=== PATIENT | female | born 1935 | race Caucasian/White ===

== ENCOUNTER 2017-05-13 12:19 | Inpatient (IN) | payer MEDICARE, OTHER ==
[~2017-05-13] VITALS: Ht 179.1 cm; Wt 63.6 kg
[2017-05-13] MEDS: 0.9 % SODIUM CHLORIDE 10 ML DISP.SYRIN. IV PRN ×2 (12:35→13:15)
[2017-05-13] MEDS ORDERED: IV NORMAL SALINE 1,000ML 1,000 ML IV SCH ×2 (12:39→14:27)
[2017-05-13] MEDS ORDERED: ACETAMINOPHEN 325 MG TABLET PO ONE (12:45)
--- NOTE | 2017-05-13 12:52 | PHYS DOC ---
Past History Past Medical History: Dementia Additional Past Medical Histor: resting tremor hard of hearing Smoking: Quit Greater Than 1 Year Alcohol Use: None Drug Use: None Adult General Chief Complaint Chief Complaint: FEVER HPI HPI Patient is a pleasant otherwise healthy 81-year-old female with a known history of dementia and a resting tremor who presents with a fever to 102.3 today at her doctor's office. Over the last several days this patient has been suffering from a nonproductive cough with increased nasal congestion and low-grade fevers to 101-103. Family is also noted decreased energy and increased sleepiness with some confusion. Patient is very hard of hearing normally lives with family. Patient denies any chest pain, abdominal pain she does not hurt anywhere she denies any sick contacts recent antibiotics or travel outside the country. She denies any change in medications as the only change medications that she does normally take his Xanax to help her sleep at night which makes actually too sleepy according to her. She denies any running, diarrhea, UTI symptoms or back pain. Besides having a fever and being tired she has no complaints. Review of Systems Review of Systems Constitutional: Positive for fevers and chills Eyes: Denies change in visual acuity, redness, or eye pain [] HENT: Positive for nasal congestion negative for sore throat Respiratory: Positive for cough nonproductive negative for shortness of breath Cardiovascular: No additional information not addressed in HPI [] GI: Denies abdominal pain, nausea, vomiting, bloody stools or diarrhea [] : Denies dysuria or hematuria [] Musculoskeletal: Denies back pain or joint pain [] Integument: Denies rash or skin lesions [] Neurologic: Denies headache, focal weakness or sensory changes positive for generalized weakness [] Endocrine: Denies polyuria or polydipsia [] All other systems were reviewed and found to be within normal limits, except as documented in this note. Allergies Allergies Allergies Coded Allergies Type Severity Reaction Last Updated Verified No Known Drug Allergies 05/13/17 No Physical Exam Physical Exam Constitutional: Patient is thin and cachectic but in no acute distress nontoxic in appearance HENT: Normocephalic, atraumatic, bilateral external ears normal, oropharynx dry with mild erythema but, no oral exudates or tonsillar hypertrophy nose clear rhinorrhea noted TMs bilaterally clear. [] Eyes: PERRLA, EOMI, conjunctiva normal, no discharge. [] Neck: Normal range of motion, no tenderness, supple, no stridor. [] Cardiovascular: Patient is a regular rhythm but a very significant 5/6 systolic ejection murmur with radiation to the neck in the abdominal wall. Lungs & Thorax: Bilateral breath sounds clear to auscultation [] Abdomen: Bowel sounds normal, soft, no tenderness, no masses, she has large pulsatile mass in the middle of abdomen nontender Skin: Warm, dry, no erythema, no rash. [] Extremities: No tenderness, no cyanosis, no clubbing, ROM intact, no edema. [] Neurologic: Alert and oriented X 3, normal motor function, normal sensory function, no focal deficits noted he moves all tremor these without weakness patient is very hard of hearing. [] Psychologic: Affect normal, judgement normal, mood normal. [] EKG EKG EKG read by me time on EKG of 1:03 PM 05/13/2017 demonstrates heart rate 94 there is a P wave there were QRS this is sinus rhythm there isn't occasional PVC noted FL interval is 124 which is normal, QRS width is 84 which is normal, QTC is 423 which is normal, patient has no evidence of ST segment or T-wave changes consistent with acute cord ischemia. There is questionable Q wave in V1 and V2 which may represent an old injury pattern.[] Radiology/Procedures Radiology/Procedures [] Course & Med Decision Making Course & Med Decision Making Pertinent Labs and Imaging studies reviewed. (See chart for details) []City Marshal note: Dr. Jason Luis City Marshal called at of the service service called at 2:20 PM Consult called back at service called back at 2:20 PM Discussed the case I presented and they agreed with admission. Time of acceptance 2:20 PM We discussed aneurysm found on ultrasound as well as elevated troponin. Patient patient's age and dementia he advised that he would be happy to admit this patient to the hospital to continue to follow blood cultures and administering antibiotics for empiric treatment for suspected systemic infection likely from a urinary source of the appropriate. She will be evaluated by a oyster cultivator because of her elevated troponin she has aortic stenosis and a large abdominal aneurysm that we did talk about it is 8.7 cm although she's had not having abdominal pain he will begin asked the family about how to approach this electively or with watchful waiting based on the fact that she is demented she may need to be on hospice. He will begin have a conversation with family at the bedside. Dragon Disclaimer Dragon Disclaimer This electronic medical record was generated, in whole or in part, using a voice recognition dictation system. Departure Departure: Impression: Primary Impression: Renal insufficiency Additional Impressions: Elevated troponin Abdominal aneurysm Fever Disposition: ADMITTED INPATIENT Admitting Physician: Jason Funes Condition: GUARDED Referrals: JASON FUNES MD (PCP) Problem Qualifiers CHRISTY BRIAN MD May 13, 2017 12:52
[2017-05-13 13:31] LABS: BASO % 1 % (0-3); EOS % 0 % (0-3); HEMATOCRIT 41.2 % (36.0-47.0); HEMOGLOBIN 13.8 g/dL (12.0-15.5); LYMPH # 0.6 x10^3/uL (1.0-4.8); LYMPH % 13 % (24-48); MEAN CORPUSCULAR HEMOGLOBIN 32 pg (25-35); MEAN CORPUSCULAR HGB CONC 34 g/dL (31-37); MEAN CORPUSCULAR VOLUME 97 fL (79-100); MONO # 0.4 x10^3/uL (0.0-1.1); MONO % 8 % (0-9); NEUT # 3.9 x10^3uL (1.8-7.7); NEUT % 79 % (31-73); PLATELET COUNT 90 x10^3/uL (140-400); RED BLOOD COUNT 4.27 x10^6/uL (3.50-5.40); RED CELL DISTRIBUTION WIDTH 13.7 % (11.5-14.5)
--- NOTE | 2017-05-13 13:55 | RAD ---
Ultrasound evaluation of the abdominal aorta 05/13/2017 Indication: Pulsatile abdominal mass Comparison study: None Discussion: Ultrasound evaluation of the abdominal aorta was performed including color Doppler imaging spectral analysis. There is a large aneurysm involving the abdominal aorta measuring up to 8.7 cm in AP diameter. The proximal abdominal aorta measures 2.5 cm in diameter. The distal abdominal aorta measures 5.6 cm in diameter. Aortic bifurcation is not visualized. Impression: Infrarenal large abdominal aortic aneurysm measuring up to 8.7 cm in diameter. Consider CTA for further characterization. Vascular surgical consultation recommended.
[2017-05-13 13:56] LABS: ALBUMIN 4.1 g/dL (3.4-5.0); CALCIUM 9.1 mg/dL (8.5-10.1); CREATININE 1.4 mg/dL (0.6-1.0); DIRECT BILIRUBIN 0.2 mg/dL (0.0-0.2); GFR 36.2; MAGNESIUM 1.6 mg/dL (1.8-2.4); POTASSIUM 4.5 mmol/L (3.5-5.1); TOTAL BILIRUBIN 0.7 mg/dL (0.2-1.0); TOTAL PROTEIN 8.8 g/dL (6.4-8.2)
--- NOTE | 2017-05-13 13:56 | RAD ---
Single view of the Chest 05/13/2017 2:39 PM Indication: cough fever Comparison: None Findings: There is no focal consolidation or infiltrate identified. There is no effusion or pneumothorax. Heart size appears to be within normal limits. Atherosclerotic calcification of the thoracic aorta noted. No osseous abnormality is identified. Impression: No evidence of acute cardiopulmonary process.
[2017-05-13] MEDS ORDERED: ONDANSETRON PF 4 MG/2 ML VIAL. IV PRN (14:30)
[2017-05-13] MEDS ORDERED: ACETAMINOPHEN 325 MG TABLET PO PRN (14:30)
[2017-05-13 14:32] LABS: BILIRUBIN,URINE SMALL (NEG); CLARITY,URINE HAZY; COLOR,URINE AMBER; GLUCOSE,URINE NEG (NEG); NITRITE,URINE NEG (NEG); UROBILINOGEN,URINE 1 mg/dL (0.2 mg/dL)
[2017-05-13 14:33] LABS: BACTERIA,URINE FEW /HPF (0-FEW); GRANULAR CASTS,URINE OCC /HPF; HYALINE CASTS, URINE FEW /HPF; SQUAMOUS EPITHELIAL CELL,UR FEW /LPF; WBC,URINE RARE /HPF (0-4)
--- NOTE | 2017-05-13 14:40 | EKG ---
[address] [address] Test Date: 2017-05-13 Test Time: 13:03:03 Pat Name: MEGHA LOMBARDO Department: Room: Gender: F Paint Mixer: RED : [id number] Requested By: CHRISTY BRIAN Order Number: [id number] Reading MD: Derik Souza MD Measurements Intervals [place] Rate: 94 P: 47 IA: 124 QRS: 31 QRSD: 84 T: 87 QT: 334 QTc: 423 Interpretive Statements SINUS RHYTHM PVC Electronically Signed On 05-21-2017 9:22:04 WEAVING LOOM OPERATOR by Derik Souza MD
[2017-05-13 14:42] LABS: INFLUENZA A PATIENT NEGATIVE (NEGATIVE); INFLUENZA B PATIENT NEGATIVE (NEGATIVE)
[2017-05-13] MEDS ORDERED: LORazepam 2 MG/ML VIAL IV ONE (15:30)
[2017-05-13] MEDS ORDERED: CIPROFLOXACIN 400MG PREMIX 200 ML IV ONE (15:30)
[2017-05-13 16:09] VITALS: BP 112/75
[2017-05-13 16:20] VITALS: BP 112/75
[2017-05-13] MEDS ORDERED: cefTRIAXone IV Push 1 GM VIAL. IVP SCH (16:30)
--- NOTE | 2017-05-13 17:50 | CONS ---
DATE OF CONSULTATION: 05/13/2017 REASON FOR CONSULTATION: Elevated troponin. HISTORY OF PRESENT ILLNESS: The patient is an 81-year-old woman who lives with her granddaughter who apparently has been having fevers and chills at home and presented with fevers of 102 and was admitted for further evaluation and treatment of this infectious process. On routine examination, she was noted to have a pulsatile abdominal mass and this prompted an ultrasound examination, which revealed an 8.7 cm abdominal aortic aneurysm. The proximal abdominal aorta apparently measures approximately 2.5 cm. She apparently at home has been in her usual state of health until the last few days when she has had fevers. Otherwise, she does not have any significant angina, orthopnea, PND or lower extremity edema. At baseline, she has been known to have some mild dementia and mild parkinsonian features, but no other significant pathology. The patient apparently has been evaluated by Dr. Funes about a year ago with respect to weight loss and did not have any significant laboratory abnormalities according to her primary managed care liaison, her granddaughter. PAST MEDICAL HISTORY: As noted above. SOCIAL HISTORY: The patient lives with her granddaughter and her son. FAMILY HISTORY: Noncontributory. REVIEW OF SYSTEMS: Negative for 10 out of 14 systems reviewed, unless otherwise mentioned above in HPI. ALLERGIES: No known drug allergies. CURRENT CARDIOVASCULAR MEDICATIONS: None. PHYSICAL EXAMINATION: VITAL SIGNS: Afebrile, heart rate 86, respiratory rate 20, blood pressure 112/75. GENERAL: She is mildly confused secondary to Ativan, given in the ER for anxiety. HEAD AND NECK: Unremarkable. HEART: Regular rate and rhythm with a 3/6 systolic murmur. Preserved S2. LUNGS: Are fairly clear to auscultation bilaterally anteriorly. ABDOMEN: Scaphoid with a large sub-epigastric mass that is pulsatile without any significant bruits. EXTREMITIES: She has diminished, but palpable pulses in her legs. She has some mottling of her lower extremities. She has cool lower extremities. NEUROLOGIC: No obvious lateralizing signs or focal deficits, but she is fairly confused. DIAGNOSTIC STUDIES: EKG demonstrates sinus rhythm with normal axis. There is rare PVC. No obvious acute ST-T wave changes. Abdominal aortic aneurysm as noted above. Chest x-ray unremarkable. LABORATORY DATA: Reviewed and notable for an elevated BNP of 6000. Minimally elevated troponin. Cr 1.4 IMPRESSION: 1. Mental status changes secondary to acute infectious process. Etiology unclear. Current workup ongoing. 2. Abdominal aortic aneurysm, 8.7 cm. 3. Suspect possible mild to moderate aortic stenosis. 4. Acute on chronic probable diastolic heart failure. 5. Failure to thrive. RECOMMENDATIONS: I had a long discussion with the patient's primary apprentice plant attendant, granddaughter, with regards to aggressive versus more conservative measures. At this present time, the family feels that the patient is quite functional and has a good mental capacity at baseline and therefore, they would like aggressive measures. In an effort to help pursue this, we will transfer to [facility] for further evaluation by Vascular Surgery and obtain an echocardiogram and a CT angiogram for treatment planning. She may be a candidate for endovascular approaches to her abdominal aortic aneurysm intervention and this would be preferred given her significant frailty. Thank you for this consultation. OJRDAN ARGUETA MD DR: KYUNG/frank JOB#: [id number] / [id number] REHAN
[2017-05-13] MEDS ORDERED: LORazepam 0.5 MG TABLET PO PRN (19:45)
[2017-05-13 19:54] VITALS: BP 102/64
[2017-05-13] MEDS ORDERED: LACTOBACILLUS RHAMNOSUS GG 1 CAPSULE. PO SCH (21:00)
[2017-05-14] MEDS ORDERED: CIPROFLOXACIN 400MG PREMIX 200 ML IV SCH (09:00)
--- NOTE | 2017-05-20 09:33 | HP ---
ADMIT DATE: 05/13/2017 HISTORY OF PRESENT ILLNESS: The patient is an 81-year-old female who lives with her daughter, apparently had a problem with an elevated temperature, came initially and through the office was transferred to the Emergency Room where she was found to have a temperature of 103. The patient in turn also was noted to have an 8.3 cm aneurysm. The patient's labs are basically unremarkable, probably viral bronchitis. The patient made good progress during the rest of her hospitalization. She was stable and she was transferred down to [facility] [place] per family's request. MEDICATIONS: The patient's medications ____ primidone 50 three times a day, Xanax 0.5 three times a day, and Aricept 10. PAST MEDICAL HISTORY: Left mastectomy, history of hypertension. ALLERGIES: No known allergies. PAST SURGICAL HISTORY: Left mastectomy. FAMILY HISTORY: Unremarkable. SOCIAL HISTORY: The patient denies alcohol or drug use. Does smoke and has about a [id number] history of smoking. REVIEW OF SYSTEMS: Denies any recent weight loss, weight gain, actually unable to give much of a history at all. PHYSICAL EXAMINATION: VITAL SIGNS: Blood pressure 118/76, heart rate 115, respiratory rate 16, temperature 103, height 70, weight 140 pounds. HEENT: The patient's head was atraumatic, normocephalic. Poor dentition. NECK: Supple, without JVD ____. LUNGS: Diminished throughout, but clear. CARDIOVASCULAR: Regular sinus rhythm. ABDOMEN: Soft. Positive bruit, no rebounding or guarding. Positive bowel sounds. EXTREMITIES: No clubbing, cyanosis or edema. NEUROLOGIC: The patient was alert and oriented x 3. IMPRESSION: Impression therefore of viral bronchitis, elevated fever greater than 102.5, abdominal aortic aneurysm, dementia, familial tremor. The patient to be transferred down to [facility] per family's request. JENA HUBER MD DR: FABIAN/frank JOB#: [id number] / [id number]
--- NOTE | 2017-05-20 15:49 | SSS ---
ADMIT DATE: 05/13/2017 HISTORY OF PRESENT ILLNESS: The patient is an 81-year-old female who lives with her daughter, apparently had a problem with an elevated temperature, came initially and through the office was transferred to the Emergency Room where she was found to have a temperature of 103. The patient in turn also was noted to have an 8.3 cm aneurysm. The patient's labs are basically unremarkable, probably viral bronchitis. The patient made good progress during the rest of her hospitalization. She was stable and she was transferred down to [place] per family's request. MEDICATIONS: The patient's medications ____ primidone 50 three times a day, Xanax 0.5 three times a day, and Aricept 10. PAST MEDICAL HISTORY: Left mastectomy, history of hypertension. ALLERGIES: No known allergies. PAST SURGICAL HISTORY: Left mastectomy. FAMILY HISTORY: Unremarkable. SOCIAL HISTORY: The patient denies alcohol or drug use. Does smoke and has about a [id number] history of smoking. REVIEW OF SYSTEMS: Denies any recent weight loss, weight gain, actually unable to give much of a history at all. PHYSICAL EXAMINATION: VITAL SIGNS: Blood pressure 118/76, heart rate 115, respiratory rate 16, temperature 103, height 70, weight 140 pounds. HEENT: The patient's head was atraumatic, normocephalic. Poor dentition. NECK: Supple, without JVD ____. LUNGS: Diminished throughout, but clear. CARDIOVASCULAR: Regular sinus rhythm. ABDOMEN: Soft. Positive bruit, no rebounding or guarding. Positive bowel sounds. EXTREMITIES: No clubbing, cyanosis or edema. NEUROLOGIC: The patient was alert and oriented x 3. IMPRESSION: Impression therefore of viral bronchitis, elevated fever greater than 102.5, abdominal aortic aneurysm, dementia, familial tremor. The patient to be transferred down to [place] per family's request. JENA HUBER MD DR: FABIAN/frank JOB#: [id number] / [id number]
== END 2017-05-13 22:15 | disposition short-term general hospital (02) | DRG 299 ==
LOC: ER 12:20 → 1 SOUTH 14:20
PROVIDERS: ADMIT Family Medicine; ATTEND Family Medicine
DX: I71.4 Abdominal aortic aneurysm, without rupture (principal); I50.33 Acute on chronic diastolic (congestive) heart failure; F03.90 Unspecified dementia, unspecified severity, without behavioral disturbance, psychotic disturbance, mood disturbance, and anxiety; I35.0 Nonrheumatic aortic (valve) stenosis; H91.90 Unspecified hearing loss, unspecified ear; R62.7 Adult failure to thrive; N28.9 Disorder of kidney and ureter, unspecified; Z87.891 Personal history of nicotine dependence; G25.0 Essential tremor; I11.0 Hypertensive heart disease with heart failure; J40 Bronchitis, not specified as acute or chronic
CPT/HCPCS: 36415; 71045; 76770; 80048; 80076; 81001; 82553; 83605; 83690; 83735; 83880; 84443; 84484; 85025; 87040; 87804; 93005; J0696; J0744; J2060; J7030

== ENCOUNTER 2017-07-17 19:23 | Emergency (ER) | payer MEDICARE ==
[~2017-07-17] VITALS: Ht 179.1 cm; Wt 63.5 kg
[2017-07-17] MEDS ORDERED: IV NORMAL SALINE 1,000ML 1,000 ML IV SCH (19:28)
[2017-07-17] MEDS ORDERED: LORazepam 2 MG/ML VIAL IV ONE (20:00)
[2017-07-17 20:12] LABS: BASO % 1 % (0-3); EOS # 0.4 x10^3/uL (0.0-0.7); EOS % 9 % (0-3); HEMATOCRIT 33.7 % (36.0-47.0); HEMOGLOBIN 11.3 g/dL (12.0-15.5); LYMPH % 44 % (24-48); MEAN CORPUSCULAR HEMOGLOBIN 33 pg (25-35); MEAN CORPUSCULAR HGB CONC 33 g/dL (31-37); MEAN CORPUSCULAR VOLUME 98 fL (79-100); MONO # 0.4 x10^3/uL (0.0-1.1); MONO % 9 % (0-9); NEUT # 1.6 x10^3uL (1.8-7.7); NEUT % 37 % (31-73); PLATELET COUNT 121 x10^3/uL (140-400); RED BLOOD COUNT 3.46 x10^6/uL (3.50-5.40); RED CELL DISTRIBUTION WIDTH 14.9 % (11.5-14.5); WHITE BLOOD COUNT 4.5 x10^3/uL (4.0-11.0)
--- NOTE | 2017-07-17 20:17 | PHYS DOC ---
Past History Past Medical History: Dementia Additional Past Medical Histor: resting tremor hard of hearing Past Surgical History: Other Smoking: Quit Greater Than 1 Year Alcohol Use: None Drug Use: None Adult General Chief Complaint Chief Complaint: SYNCOPE HPI HPI 81-year-old female with a history of advanced dementia as well as AAA and behavioral disorder/psychiatric issues. Patient now brought in by EMS after an episode of witnessed syncope while sitting at the dinner table. Patient complains of some low back pain. Because what appears to be her baseline dementia is not possible for her to fully cooperate with an exam. Apparently per family patient was eating she became quiet and was unresponsive for a short time after which she awakened and when EMS arrived she was awake and alert. Per family patient is full code and was brought to the emergency department for evaluation. Apparently she is under the care Dr. Souza and scheduled for follow-up with him regarding her AAA in the near future Review of Systems Review of Systems Constitutional: Denies fever or chills [] Eyes: Denies change in visual acuity, redness, or eye pain [] HENT: Denies nasal congestion or sore throat [] Respiratory: Denies cough or shortness of breath [] Cardiovascular: No additional information not addressed in HPI [] GI: Denies abdominal pain, nausea, vomiting, bloody stools or diarrhea [] : Denies dysuria or hematuria [] Musculoskeletal: Denies back pain or joint pain [] Integument: Denies rash or skin lesions [] Neurologic: Denies headache, focal weakness or sensory changes [] Endocrine: Denies polyuria or polydipsia [] All other systems were reviewed and found to be within normal limits, except as documented in this note. Current Medications Current Medications Current Medications Medications (Trade) Dose Ordered Sig/[place] Start Time Stop Time Status Last Admin Dose Admin Lorazepam (Ativan) 0.5 mg 1X ONCE 07/17/17 20:00 07/17/17 20:01 DC Sodium Chloride 1,000 ml @ 500 mls/hr Q2H 07/17/17 19:28 Allergies Allergies Allergies Coded Allergies Type Severity Reaction Last Updated Verified No Known Drug Allergies 05/13/17 No Physical Exam Physical Exam Elderly female with a clearly contributory anxiety component talking constantly with mildly dry mucous membranes supple neck clear lungs regular rate and rhythm. She does have a mass in the upper mid abdomen however this is nontender. No megaly no guarding or rebound. Normal extremities except there are emaciated. Nonfocal neurologic exam. Constitutional: Likely weak appearing elderly female, non-toxic appearance. [] HENT: Normocephalic, atraumatic, bilateral external ears normal, no oral exudates, nose normal. [] Eyes: PERRLA, EOMI, conjunctiva normal, no discharge. [] Neck: Normal range of motion, no tenderness, supple, no stridor. [] Cardiovascular:Heart rate regular rhythm, no murmur [] Lungs & Thorax: Bilateral breath sounds clear to auscultation [] Abdomen: Bowel sounds normal, soft, no tenderness Skin: Warm, dry, no erythema, no rash. [] Back: No tenderness, no CVA tenderness. No spinal tenderness [] Extremities: No tenderness, no cyanosis, no clubbing, ROM intact, no edema. [] Neurologic: Alert,, normal motor function, normal sensory function, no focal deficits noted. [] Psychologic: Anxious affect. EKG EKG EKG with normal sinus rhythm at 94 normal axis hyperacute T waves interiorly no STEMI nonspecific ST and T-wave findings interpreted by me[] Radiology/Procedures Radiology/Procedures [] Course & Med Decision Making Course & Med Decision Making Pertinent Labs and Imaging studies reviewed. (See chart for details) Elderly female with severe dementia status post episode of syncope. She has a history of a AAA and her only complaint in the emergency department his back pain. EKG with hyperacute T waves in the anterior distribution however potassium is normal on the i-STAT. Creatinine is unremarkable as well as 1.1 and BUN/creatinine ratio consistent with prerenal azotemia. Fluids administered. CT abdomen and pelvis will be done. Patient has a very significant anxiety component to her presentation and this was addressed with Ativan with therapeutic effect. Full workup pending anticipate inpatient admission for full evaluation after his episode of syncope. Patient hemodynamically stable on multiple re-evaluations. CT results called to me by radiologist showing ruptured AAA with retroperitoneal hematoma. Second IV was immediately obtained and IV fluids run wide open. Patient evolved some hypotension at this point without tachycardia. Uncrossed match blood ordered for administration of 2 units wide open as well as continued IV fluids. Transfer initiated immediately to [facility]. Patient accepted by Dr. Theodora Gonzalez of the vascular surgery service. Son Jose Juan who is medical decision maker is present in the ED and we discussed patient's resuscitation status. He states that if at all possible he would like her to have the surgery however if she codes he would like to respect A DNR status. EMS contacted and present in the ED for transfer. Jose Juan and family are aware of immediately life-threatening nature of patient's illness and that without surgical treatment this will not be survivable. They would like her to be transferred to get the surgery if at all possible. Dragon Disclaimer Dragon Disclaimer This electronic medical record was generated, in whole or in part, using a voice recognition dictation system. Departure Departure: Impression: Primary Impression: Syncope Additional Impressions: Prerenal azotemia Anxiety Back pain Ruptured abdominal aortic aneurysm (AAA) Disposition: 02 XFER SHT-TRM HOSP Condition: CRITICAL Referrals: JENA HUBER MD (PCP) Problem Qualifiers MARANDA IBRAHIM MD Jul 17, 2017 20:17
[2017-07-17 20:27] LABS: ALBUMIN 3.5 g/dL (3.4-5.0); ALBUMIN/GLOBULIN RATIO 0.8 (1.0-1.7); CALCIUM 9.1 mg/dL (8.5-10.1); CREATININE 1.3 mg/dL (0.6-1.0); GFR 39.4; POTASSIUM 4.6 mmol/L (3.5-5.1); TOTAL BILIRUBIN 0.3 mg/dL (0.2-1.0); TOTAL PROTEIN 7.7 g/dL (6.4-8.2)
[2017-07-17] MEDS ORDERED: CONTRAST GIVEN MC PRN (20:30)
[2017-07-17] MEDS ORDERED: IOHEXOL 300 MG/ML 75 ML VIAL. IV ONE (20:30)
[2017-07-17] MEDS ORDERED: ONDANSETRON PF 4 MG/2 ML VIAL. IV ONE (20:45)
[2017-07-17] MEDS ORDERED: IV NORMAL SALINE 1,000ML 1,000 ML IV ONE (22:00)
--- NOTE | 2017-07-17 22:04 | RAD ---
CTA abdomen and pelvis with contrast 07/17/2017 CLINICAL INDICATION: Back pain and known abdominal aortic aneurysm. COMPARISON: None. TECHNIQUE: Multiple CTA images of the abdomen and pelvis were obtained following the intravenous and ministration of 73 mL Omnipaque 300. Portal venous phase images were obtained of the abdomen and pelvis. MIPS were obtained of the abdomen and pelvis. *One or more of the following individualized dose reduction techniques were utilized for this examination: 1. Automated exposure control. 2. Adjustment of the mA and/or kV according to patient size. 3. Use of iterative reconstruction technique. FINDINGS: Heart size is normal. Coronary artery calcifications. Visualized lung bases are clear. There is a large juxtarenal/infrarenal abdominal aortic aneurysm measuring up to 9.4 cm oblique AP over a 17.9 cm CC segment which extends to the level of the bifurcation. There is drooping of the abdominal aorta with large retroperitoneal hematoma with extension into the peritoneum there is rupture of the aneurysm at the right lateral aspect series 5/image 132 with extravasation of contrast on the portal venous phase of images compatible with active bleeding. The aneurysm results in right lateral displacement of the kidney and anterior and lateral displacement of multiple bowel loops. There is mild peripheral mixed atheromatous disease of the abdominal aorta. Normal caliber bilateral common and external iliac arteries with heavy calcified atheromatous disease. Extensive calcified atheromatous disease of the internal iliac arteries with resultant areas of moderate estimated 50 percent narrowing. There is mild suprarenal calcified atheromatous disease of the abdominal aorta including the origins of the superior mesenteric celiac and single bilateral main renal arteries without high-grade narrowing or occlusion. Liver, spleen, adrenal glands are unremarkable. Pancreas is not visualized due to displacement. Left kidney unremarkable. Right kidney unremarkable apart from right lateral displacement. No bowel obstruction. No pneumoperitoneum. Urinary bladder is decompressed. There is a small fat-containing right inguinal hernia. There are no destructive osseous lesions. IMPRESSION: 1. Large juxtarenal/infrarenal ruptured abdominal aortic aneurysm measuring up to 9.5 cm with large retroperitoneal hematoma and active bleeding. Emergent surgical consultation is recommended. 2. Normal caliber common and external iliacs with heavy calcified atheromatous disease resulting in multifocal areas of at least 50 percent narrowing. These results were discussed with Dr. James of the emergency service by telephone at 9:50 PM 07/17/[address] Behzad Julio. Electronically signed by: Behzad Julio MD (07/17/2017 10:01 PM) [facility]
[2017-07-17 22:18] VITALS: BP 72/39
[2017-07-18 05:48] LABS: HEMOGLOBIN ISTAT 11.6 gm/dL; POTASSIUM ISTAT 4.6 mmol/L (3.5-5.0)
--- NOTE | 2017-07-18 09:06 | RAD ---
Portable AP upright view CXR: Clinical indications: Chest pain. Evaluation. Comparison: May 13, 2017.. Findings: No acute lung infiltrate or pleural effusion or pulmonary edema or lung mass or pneumothorax is seen. The heart size, pulmonary vasculature, mediastinum and both ned are unremarkable. Impression: No acute radiographic abnormality is seen.
== END 2017-07-18 06:27 | disposition short-term general hospital (02) ==
LOC: ER 19:23
DX: R55 Syncope and collapse (principal); R79.89 Other specified abnormal findings of blood chemistry; F41.9 Anxiety disorder, unspecified; M54.5 Low back pain; F03.90 Unspecified dementia, unspecified severity, without behavioral disturbance, psychotic disturbance, mood disturbance, and anxiety; Z87.891 Personal history of nicotine dependence
CPT/HCPCS: 36415; 36430; 71045; 74174; 74177; 80047; 80053; 84443; 84484; 85025; 86850; 86900; 86901; 86920; 96361; 96374; 96375; 99285; J2060; J2405; P9016; Q9967; J7030